=== PATIENT | female | born 1960 | race Two or more races ===

== ENCOUNTER 2022-08-01 01:44 | Emergency (ER) | payer OTHER ==
[~2022-08-01] VITALS: Ht 157.5 cm; Wt 54.5 kg
[2022-08-01] MEDS ORDERED: ACETAMINOPHEN 325 MG TABLET PO ONE (02:15)
[2022-08-01 03:29] LABS: BASOPHILS % (AUTO) 0.1 % (0.0-2.0); EOSINOPHILS % (AUTO) 0 % (1.0-6.0); HEMATOCRIT 40.9 % (36-46); HEMOGLOBIN 13.8 g/dL (12.0-16.0); LYMPHOCYTES % (AUTO) 5.9 % (22.0-44.0); MEAN CORPUSCULAR HEMOGLOBIN 29.6 pg (26.0-34.0); MEAN CORPUSCULAR HGB CONC 33.8 G/dL (31.0-37.0); MEAN CORPUSCULAR VOLUME 88 fL (80-100); MONOCYTES # (AUTO) 0.8 K/uL (0.1-1.0); MONOCYTES % (AUTO) 4.5 % (2.0-9.0); NEUTROPHILS # (AUTO) 15.1 K/uL (1.8-7.7); PLATELET COUNT (AUTO) 217 K/uL (150-450); RED BLOOD CELL COUNT(AUTO) 4.67 MIL/uL (4.00-5.20)
[2022-08-01 03:33] LABS: NEUTROPHILS % (AUTO) 89.5 % (40.0-70.0)
[2022-08-01 03:43] LABS: ALANINE AMINOTRANSFERASE 18 U/L (12-78); ALBUMIN 3.6 g/dL (3.4-5.0); ALKALINE PHOSPHATASE 111 U/L (46-116); ANION GAP 9 mmol/L (8-16); ASPARTATE AMINOTRANSFERASE 14 U/L (15-37); BILIRUBIN,TOTAL 0.5 mg/dL (0.1-1.0); CARBON DIOXIDE 27 mmol/L (22-29); CHLORIDE 103 mmol/L (98-107); GLOMERULAR FILTR. RATE CALC > 60 mL/min (>60); POTASSIUM 3.4 mmol/L (3.5-5.1); PROTHROMBIN TIME 10.5 SEC (9.4-11.6); SODIUM SERUM 139 mmol/L (136-145); TOTAL PROTEIN, SERUM 7.1 g/dL (6.4-8.2); UREA NITROGEN, BLOOD 15 mg/dL (7-18)
[2022-08-01] MEDS ORDERED: PERTUSS(ACELL),DIPH,TET VAC/PF 0.5 ML SYRINGE IM. ONE (03:45)
[2022-08-01 03:48] LABS: GLUCOSE,RANDOM 421 mg/dL (70-110)
[2022-08-01 04:00] VITALS: BP 163/93
== END 2022-08-01 04:25 | disposition home or self-care (01) ==
LOC: EMS 01:47
DX: S09.93XA Unspecified injury of face, initial encounter (principal); E11.9 Type 2 diabetes mellitus without complications; Y04.8XXA Assault by other bodily force, initial encounter; Y93.89 Activity, other specified; Y92.89 Other specified places as the place of occurrence of the external cause; Y99.8 Other external cause status
CPT/HCPCS: 99285; 70450; 80053; 85025; 85610; 85730; 86850; 86900; 86901; 36415; 70486; 72125; 90715; 90471; G0480

== ENCOUNTER 2023-09-23 19:17 | Emergency (ER) | payer OTHER ==
[~2023-09-23] VITALS: Ht 157.5 cm; Wt 54.5 kg
[2023-09-23] MEDS ORDERED: NIFE-79 PO (19:26)
[2023-09-23] MEDS ORDERED: LISI40TA9 PO (19:26)
[2023-09-23] MEDS ORDERED: ASPI-1444 PO (19:26)
[2023-09-23] MEDS ORDERED: INSU100I26 SQ (19:26)
[2023-09-23 19:46] LABS: GLUCOMETER DEV NAME(LOC) ERT.5; GLUCOSE,POINT OF CARE 114 MG/DL (70-110)
[2023-09-23] MEDS: ACETAMINOPHEN 325 MG TABLET PO ONE (22:58)
[2023-09-23] MEDS: BACITRACIN 0.9 GM PACKET OINTMENT TP ONE (22:58)
[2023-09-23] MEDS: PERTUSS(ACELL),DIPH,TET/PF 0.5 ML SYRINGE [ADULT] IM. ONE (23:03)
[2023-09-24] VITALS: BP 141/79; PULSE 73; RESP 20; TEMP 97.3
== END 2023-09-24 00:01 | disposition home or self-care (01) ==
LOC: EMS 19:17
DX: S01.01XA Laceration without foreign body of scalp, initial encounter (principal); S60.212A Contusion of left wrist, initial encounter; E11.9 Type 2 diabetes mellitus without complications; I10 Essential (primary) hypertension; M54.2 Cervicalgia; W51.XXXA Accidental striking against or bumped into by another person, initial encounter; Y93.89 Activity, other specified; Y92.89 Other specified places as the place of occurrence of the external cause; Y99.8 Other external cause status
CPT/HCPCS: 12002; 70450; 72125; 82962; 90471; 90715; 99285

== ENCOUNTER 2023-09-30 15:59 | Emergency (ER) | payer OTHER ==
[~2023-09-30] VITALS: Ht 157.5 cm; Wt 9.1 kg
[~2023-09-30 15:59] MED LIST: ASPI-1444 PO; INSU100I26 SQ; LISI40TA9 PO; NIFE-79 PO
[2023-09-30 16:05] VITALS: TEMP 97.6
[2023-09-30 17:15] VITALS: BP 145/79; PULSE 90; RESP 18
== END 2023-09-30 17:28 | disposition home or self-care (01) ==
LOC: EMS 16:43
DX: S01.81XD Laceration without foreign body of other part of head, subsequent encounter (principal); E11.9 Type 2 diabetes mellitus without complications; I10 Essential (primary) hypertension; Z79.4 Long term (current) use of insulin; X58.XXXD Exposure to other specified factors, subsequent encounter
CPT/HCPCS: 99281; Z7502

== ENCOUNTER 2024-04-05 15:20 | Emergency (ER) | payer OTHER ==
[~2024-04-05] VITALS: Ht 162.6 cm; Wt 52.3 kg
[2024-04-05 15:23] VITALS: BP 139/71; PULSE 118; RESP 18; TEMP 98.4; O2SAT 98
== END 2024-04-05 17:50 | disposition left against medical advice (07) ==
LOC: EMS 15:20
DX: S81.801A Unspecified open wound, right lower leg, initial encounter (principal); Z53.21 Procedure and treatment not carried out due to patient leaving prior to being seen by health care provider; X58.XXXA Exposure to other specified factors, initial encounter; Y93.89 Activity, other specified; Y92.89 Other specified places as the place of occurrence of the external cause; Y99.8 Other external cause status
CPT/HCPCS: 82962

== ENCOUNTER 2024-12-05 21:10 | Emergency (ER) | payer OTHER ==
[~2024-12-05] VITALS: Ht 157.5 cm; Wt 46.8 kg
[~2024-12-05 21:10] MED LIST changes: +ACET-2247 PO; +INSU100V SQ; +LISI-1024 PO; -LISI40TA9 PO; +VANC1IV IV
[2024-12-05 23:29] VITALS: BP 145/76; PULSE 90; RESP 16; TEMP 98.005280; O2SAT 97
== END 2024-12-05 23:30 | disposition home or self-care (01) ==
LOC: EMS 21:11
DX: S52.612A Displaced fracture of left ulna styloid process, initial encounter for closed fracture (principal); S52.502A Unspecified fracture of the lower end of left radius, initial encounter for closed fracture; I10 Essential (primary) hypertension; E11.9 Type 2 diabetes mellitus without complications; Z79.82 Long term (current) use of aspirin; Z85.3 Personal history of malignant neoplasm of breast; Z88.8 Allergy status to other drugs, medicaments and biological substances; Z79.899 Other long term (current) drug therapy; W01.0XXA Fall on same level from slipping, tripping and stumbling without subsequent striking against object, initial encounter; Y93.01 Activity, walking, marching and hiking; Y92.89 Other specified places as the place of occurrence of the external cause; Y99.8 Other external cause status
CPT/HCPCS: 99283